=== PATIENT | female | born 1985 | race Caucasian/White ===

== ENCOUNTER 2016-07-23 09:19 | Emergency (ER) | payer BC, MEDICAID ==
[2016-07-23] MEDS ORDERED: ONDANSETRON 4 MG TAB.RAPDIS PO ONE (09:52)
--- NOTE | 2016-07-23 09:55 | ER Document Report ---
ED Medical Screen (RME) - General Chief Complaint: Abdominal Pain Stated Complaint: LOWER ABDOMINAL PAIN Time Seen by Provider: 07/23/16 09:51 Mode of Arrival: Ambulatory Information source: Patient Notes: 31-year-old female presents to ED for pain in the right mid to lower abdomen. She states it hurts to walk and she still has the pain. She still has nausea but no vomiting. Patient has a long history of abdominal problems during the . She states this pain is different than any of the other pain. She states that while she was in the she had a perforated something but she is not sure if it was intestines or stomach. She did have an ulcer at the end of the call for. She has had a gallbladder removed states she has had multiple multiple colonoscopies and endoscopies in her last CAT scan was in December or January of last year 2015. She states this pain is different than all of her other stomach pains. I have greeted and performed a rapid initial assessment of this patient. A comprehensive ED assessment and evaluation of the patient, analysis of test results and completion of medical decision making process will be conducted by an additional ED providers. TRAVEL OUTSIDE OF THE [place] IN LAST 30 DAYS: No - Related Data Allergies/Adverse Reactions: cillins Allergy (Uncoded 07/23/16 09:23) swelling Past Medical History Renal/ Medical History: Denies: Hx Peritoneal Dialysis Physical Exam - Vital signs Vitals: Temp Pulse Resp BP Pulse Ox 98.3 F 70 14 115/72 99 07/23/16 09:23 07/23/16 09:23 07/23/16 09:23 07/23/16 09:23 07/23/16 09:23 Course - Vital Signs Vital signs: Temp Pulse Resp BP Pulse Ox 98.3 F 70 14 115/72 99 07/23/16 09:23 07/23/16 09:23 07/23/16 09:23 07/23/16 09:23 07/23/16 09:23
[2016-07-23 10:19] LABS: ABSOLUTE EOSINOPHILS # (AUTO) 0.2 10^3/uL (0.0-0.6); ABSOLUTE LYMPHOCYTES (AUTO) 1.1 10^3/uL (0.5-4.7); ABSOLUTE MONOCYTES (AUTO) 0.4 10^3/uL (0.1-1.4); ABSOLUTE NEUT (AUTO) 6.3 10^3/uL (1.7-8.2); BASOPHILS % (AUTO) 0.5 % (0-2); EOSINOPHILS % (AUTO) 2.2 % (0-6); HEMATOCRIT 41.5 % (36.0-47.0); HEMOGLOBIN 14.2 g/dL (12.0-15.5); HGB HCT DIFFERENCE 1.1; LYMPHOCYTES % (AUTO) 13.2 % (13-45); MEAN CORPUSCULAR HEMOGLOBIN 32.9 pg (27.0-33.4); MEAN CORPUSCULAR HGB CONC 34.3 g/dL (32.0-36.0); MEAN CORPUSCULAR VOLUME 96 fl (80-97); MONOCYTES % (AUTO) 5.2 % (3-13); RED BLOOD COUNT 4.33 10^6/uL (3.72-5.28); RED CELL DISTRIBUTION WIDTH 12.4 % (11.5-14.0); SEGMENTED NEUTROPHILS % (AUTO) 78.9 % (42-78)
[2016-07-23 10:22] LABS: APPEARANCE,URINE SLIGHTLY-CLOUDY; BILIRUBIN,URINE NEGATIVE (NEGATIVE); GLUCOSE, URINE NEGATIVE (NEGATIVE); KETONES,URINE NEGATIVE (NEGATIVE); LEUKOCYTE ESTERASE,URINE NEGATIVE (NEGATIVE); NITRITE,URINE NEGATIVE (NEGATIVE); PROTEIN,URINE NEGATIVE (NEGATIVE); URINE SPECIFIC GRAVITY 1.015; UROBILINOGEN,URINE NEGATIVE mg/dL (<2.0)
[2016-07-23 10:38] LABS: ALANINE AMINOTRANSFERASE 24 U/L (9-52); ALBUMIN 4.3 g/dL (3.5-5.0); ALKALINE PHOSPHATASE 59 U/L (38-126); ANION GAP 10 (5-19); ASPARTATE AMINO TRANSFERASE 23 U/L (14-36); BILIRUBIN,DIRECT 0.2 mg/dL (0.0-0.4); BILIRUBIN,TOTAL 1.6 mg/dL (0.2-1.3); BLOOD UREA NITROGEN 13 mg/dL (7-20); CALCIUM 9.3 mg/dL (8.4-10.2); CARBON DIOXIDE 27 mmol/L (22-30); CHLORIDE 105 mmol/L (98-107); CREATININE RESULT 0.69 mg/dL (0.52-1.25); GLUCOSE 88 mg/dL (75-110); LIPASE 95.6 U/L (23-300); TOTAL PROTEIN 7.6 g/dL (6.3-8.2)
--- NOTE | 2016-07-23 11:22 | ER Document Report ---
ED General - General Chief Complaint: Abdominal Pain Stated Complaint: LOWER ABDOMINAL PAIN Time Seen by Provider: 07/23/16 09:51 Mode of Arrival: Ambulatory Information source: Patient Notes: Patient presents emergency department with complaints of right lower quadrant abdominal pain. He reports she reports that she had a decreased appetite last night and even finish her direct line. She reports at approximately 4:30 in the morning she woke up with a sharp pain in the right lower quadrant. She reports some nausea but was able to eat a bagel this morning around 830. She complains of pain when walking. Positive obturator. Denies fever vomiting diarrhea. Denies pain with void. Denies vaginal discharge. No recent trauma. TRAVEL OUTSIDE OF THE [place] IN LAST 30 DAYS: No - HPI Onset: This morning Onset/Duration: Sudden Quality of pain: Sharp Severity: Severe Pain Level: 4 Associated symptoms: Nausea Exacerbated by: Walking Relieved by: Denies Similar symptoms previously: No Recently seen / treated by doctor: No - Related Data Allergies/Adverse Reactions: cillins Allergy (Uncoded 07/23/16 09:23) swelling Past Medical History - General Information source: Patient Last Menstrual Period: 06/28/16 - Social History Smoking Status: Unknown if Ever Smoked Cigarette use (# per day): No Frequency of alcohol use: Occasional Drug Abuse: None Family History: Reviewed & Not Pertinent Patient has suicidal ideation: No Patient has homicidal ideation: No - Medical History Medical History: Negative Renal/ Medical History: Denies: Hx Peritoneal Dialysis Past Surgical History: Reports: Hx Abdominal Surgery, Hx Appendectomy, Hx Cholecystectomy Review of Systems - Review of Systems Notes: Review HPI for review of systems., All other systems negative Physical Exam - Vital signs Vitals: Temp Pulse Resp BP Pulse Ox 98.3 F 70 14 115/72 99 07/23/16 09:23 07/23/16 09:23 07/23/16 09:23 07/23/16 09:23 07/23/16 09:23 - Notes Notes: PHYSICAL EXAMINATION: GENERAL: well appearing non toxic looking HEAD: Atraumatic, normocephalic. EYES: Pupils equal round extraocular movements intact, sclera anicteric, conjunctiva are normal. ENT: nares patent, Moist mucous membranes. NECK: Normal range of motion, supple without lymphadenopathy LUNGS: CTAB and equal. No wheezes rales or rhonchi. HEART: Regular rate and rhythm without murmurs ABDOMEN: RLL Quad ttp, + obturator, pain with heel tap BACK: Denies pain EXTREMITIES: Normal range of motion, no pitting edema. No cyanosis. NEUROLOGICAL: Cranial nerves grossly intact. Normal sensory/motor exams. PSYCH: Normal mood, normal affect. SKIN: Warm, Dry, normal turgor, no rashes or lesions noted Course - Re-evaluation Re-evalutation: 07/23/16 11:17 Dr. Roach in the emergency department, updated on patient possible appendicitis. 07/23/16 11:25 Dr Roach the patient. He was advised with transvaginal ultrasound to rule out torsion if that is negative CT with oral or IV contrast. pt updated on plan, declines pain medication 07/23/16 14:35 7 cm complex cyst noted. Consulted with Dr. Dmitry Bowman regarding patient ovarian cyst. Reviewed ultrasound report patient history. At this time patient is safe to go home. She was given instructions on signs and symptoms of ruptured ovarian cyst and the importance of follow-up with TURNTABLE OPERATOR. She reports she will follow-up with her PROFESSOR OF [facility]. I did attempt to contact [facility] but was unsuccessful in talking to a person. - Vital Signs Vital signs: Temp Pulse Resp BP Pulse Ox 98.3 F 60 18 100/68 100 07/23/16 09:23 07/23/16 14:26 07/23/16 14:26 07/23/16 14:26 07/23/16 14:26 - Laboratory Result Diagrams: 07/23/16 10:00 07/23/16 10:00 Laboratory results interpreted by me: 07/23/16 07/23/16 10:00 10:00 Seg Neutrophils % 78.9 H Total Bilirubin 1.6 H - Diagnostic Test Radiology reviewed: Image reviewed, Reports reviewed - Diagnostic report text EXAM DESCRIPTION: U/S NON OB PEL TV W/DOPPLER COMPLETED DATE/ TIME: 07/23/2016 12:27 pm REASON FOR STUDY: RLQ pain, hx ovarian cyst rupture, R /O torsion COMPARISON: None. TECHNIQUE: Dynamic and static grayscale images acquired of the pelvis via transvaginal approach and recorded on PACS. Additional selected color Doppler and spectral images recorded. LIMITATIONS: None. FINDINGS: UTERUS: Contour normal. No mass. ENDOMETRIAL STRIPE: No focal or generalized thickening. No masses. CERVIX: No nabothian cysts. RIGHT OVARY: 7 cm anechoic lesion with dependent echogenic component measuring about 3 cm. RIGHT OVARY DOPPLER: Normal arterial vascular flow without evidence for torsion. LEFT OVARY: No abnormal masses. LEFT OVARY DOPPLER: Normal arterial vascular flow without evidence for torsion. FREE FLUID: Small amount. OTHER: No other significant finding. MEASUREMENTS: UTERUS: 9.9 x 6.7 x 4.4 cm ENDOMETRIAL STRIPE: 11 mm RIGHT OVARY: 8.4 x 7.5 x 5.8 cm LEFT OVARY: 3.0 x 2.0 x 1.7 cm IMPRESSION: 7 cm complex cyst right ovary - Consults dr marques bowman Time consulted: 14:25 Reason for consultation: 07/23/16 14:38 7 cm complex ovarian cyst, plan of care Consulted provider: other Discharge - Discharge Clinical Impression: Right lower quadrant abdominal pain, Ovarian cyst Condition: Stable Disposition: HOME, SELF-CARE Instructions: Oral Narcotic Medication ([facility]), Antinausea Medication ([facility]), Ovarian Cyst ([facility]) Additional Instructions: *You have been evaluated for abdominal pain, ovarian cysts *The ultrasound showed a 7cm complex right ovarian cysts *Take medication as prescribed for pain *Follow up with your TURNTABLE OPERATOR - [facility] within 5 days *Return to ED for worsening condition, changes, needs, lightheadedness, vaginal bleeding ,increased pain, concerns *Return to ED if not better in 24 hours Prescriptions: Oxycodone HCl/Acetaminophen [Percocet 5-325 mg Tablet] 1 - 2 tab PO ASDIR PRN # 15 tablet PRN Reason: Referrals: MARTITA HAQ MD [Primary Care Provider] - Follow up in 3-5 days
--- NOTE | 2016-07-23 12:39 | RADIOLOGY REPORT (SQ) ---
EXAM DESCRIPTION: U/S NON OB PEL TV W/DOPPLER COMPLETED DATE/TIME: 07/23/2016 12:27 pm REASON FOR STUDY: RLQ pain, hx ovarian cyst rupture, R/O torsion COMPARISON: None. TECHNIQUE: Dynamic and static grayscale images acquired of the pelvis via transvaginal approach and recorded on PACS. Additional selected color Doppler and spectral images recorded. LIMITATIONS: None. FINDINGS: UTERUS: Contour normal. No mass. ENDOMETRIAL STRIPE: No focal or generalized thickening. No masses. CERVIX: No nabothian cysts. RIGHT OVARY: 7 cm anechoic lesion with dependent echogenic component measuring about 3 cm. RIGHT OVARY DOPPLER: Normal arterial vascular flow without evidence for torsion. LEFT OVARY: No abnormal masses. LEFT OVARY DOPPLER: Normal arterial vascular flow without evidence for torsion. FREE FLUID: Small amount. OTHER: No other significant finding. MEASUREMENTS: UTERUS: 9.9 x 6.7 x 4.4 cm ENDOMETRIAL STRIPE: 11 mm RIGHT OVARY: 8.4 x 7.5 x 5.8 cm LEFT OVARY: 3.0 x 2.0 x 1.7 cm IMPRESSION: 7 cm complex cyst right ovary. TECHNICAL DOCUMENTATION: JOB ID: [id number] [employer]- All Rights Reserved
[2016-07-23] MEDS ORDERED: OXYCODONE-ACETAMINOPHEN 5-325 MG TABLET PO ONE (13:47)
[2016-07-23 14:27] VITALS: BP 100/68
--- NOTE | 2016-07-23 17:20 | PDOC CONSULTATION ---
Consultation Consult Date: 07/23/16 Attending physician:: SUNNY PHILLIPS Consult reason:: Right lower quadrant abdominal pain. History of Present Illness Admission Date/PCP: MARTITA HAQ MD Patient complains of: Patient awoke this morning at approximately 0700, with gradual onset of right lower quadrant pain with nausea without vomiting. Patient denied any fever or chills, change in bowel habits, or anorexia. Patient ate breakfast before coming to the hospital. Patient reports that she has had previous ovarian cyst problems, but does not recall if her previous experience of pain like this was related to that. Patient denies any urinary symptoms or vaginal bleeding or discharge. History of Present Illness: VIANNEY KHAN is a 31 year old female Past Surgical History Past Surgical History: Reports: Appendectomy, Cholecystectomy Social History Smoking Status: Unknown if Ever Smoked Family History Family History: Reviewed & Not Pertinent Parental Family History Reviewed: No - Not applicable Children Family History Reviewed: Unknown - Not applicable. Sibling(s) Family History Reviewed.: No - Not applicable. Medication/Allergy Home Medications: Pnv W-O Ca No5/Fe Fumarate/FA [-U Capsule] 1 cap PO DAILY 01/12/12 Oxycodone HCl/Acetaminophen [Percocet 5-325 mg Tablet] 1 - 2 tab PO ASDIR PRN # 15 tablet 07/23/16 Allergies/Adverse Reactions: cillins Allergy (Uncoded 07/23/16 09:23) swelling Physical Exam Vital Signs: Temp Pulse Resp BP Pulse Ox 98.3 F 60 18 100/68 100 07/23/16 09:23 07/23/16 14:26 07/23/16 14:26 07/23/16 14:26 07/23/16 14:26 Intake & Output 07/22/16 07/23/16 07/24/16 06:59 06:59 06:59 Weight 49.7 kg Head exam: PRESENT: atraumatic Eye exam: ABSENT: conjunctival injection, conjunctiva pale Neck exam: PRESENT: full ROM. ABSENT: carotid bruit, JVD, lymphadenopathy, tenderness, thyromegaly, tracheal deviation GI/Abdominal exam: PRESENT: firm, normal bowel sounds, organolmegaly, rebound - Mild rebound., tenderness - Mild tenderness., other - No guarding noted.. ABSENT: guarding Results Laboratory Results: 07/23/16 10:00 07/23/16 10:00 07/23/16 07/23/16 07/23/16 10:00 10:00 10:00 WBC 8.0 RBC 4.33 Hgb 14.2 Hct 41.5 MCV 96 MCH 32.9 MCHC 34.3 RDW 12.4 Plt Count 290 Seg Neutrophils % 78.9 H Lymphocytes % 13.2 Monocytes % 5.2 Eosinophils % 2.2 Basophils % 0.5 Absolute Neutrophils 6.3 Absolute Lymphocytes 1.1 Absolute Monocytes 0.4 Absolute Eosinophils 0.2 Absolute Basophils 0.0 Sodium 142.0 Potassium 4.0 Chloride 105 Carbon Dioxide 27 Anion Gap 10 BUN 13 Creatinine 0.69 Est GFR ( Amer) > 60 Est GFR (Non-Af Amer) > 60 Glucose 88 Calcium 9.3 Total Bilirubin 1.6 H AST 23 ALT 24 Alkaline Phosphatase 59 Total Protein 7.6 Albumin 4.3 Lipase 95.6 Serum HCG, Qual NEGATIVE Urine Color Urine Appearance Urine pH Ur Specific Wilson Urine Protein Urine Glucose (UA) Urine Ketones Urine Blood Urine Nitrite Ur Leukocyte Esterase Urine WBC (Auto) Urine RBC (Auto) 07/23/16 10:00 WBC RBC Hgb Hct MCV MCH MCHC RDW Plt Count Seg Neutrophils % Lymphocytes % Monocytes % Eosinophils % Basophils % Absolute Neutrophils Absolute Lymphocytes Absolute Monocytes Absolute Eosinophils Absolute Basophils Sodium Potassium Chloride Carbon Dioxide Anion Gap BUN Creatinine Est GFR ( Amer) Est GFR (Non-Af Amer) Glucose Calcium Total Bilirubin AST ALT Alkaline Phosphatase Total Protein Albumin Lipase Serum HCG, Qual Urine Color YELLOW Urine Appearance SLIGHTLY-CLOUDY Urine pH 6.0 Ur Specific Wilson 1.015 Urine Protein NEGATIVE Urine Glucose (UA) NEGATIVE Urine Ketones NEGATIVE Urine Blood NEGATIVE Urine Nitrite NEGATIVE Ur Leukocyte Esterase NEGATIVE Urine WBC (Auto) 2 Urine RBC (Auto) 0 Impressions: Transvaginal US 07/23/16 11:26 IMPRESSION: 7 cm complex cyst right ovary. Assessment & Plan - Diagnosis (1) Abdominal pain Qualifiers: Abdominal location: right lower quadrant Qualified Code(s): R10.31 - Right lower quadrant pain Is this a current diagnosis for this admission?: YesPlan: Patient is being referred to a [employer] specialist as an outpatient. She has been given pain medication as well. - Plan Summary Plan Summary: Patient was found on vaginal ultrasound to have a 7 cm right ovarian cyst. No surgical intervention is indicated. Patient is being referred to an outpatient [employer] specialist
== END 2016-07-23 14:39 | disposition home or self-care (01) ==
LOC: ER 09:19
DX: N83.201 Unspecified ovarian cyst, right side (principal); R10.31 Right lower quadrant pain; R63.0 Anorexia
CPT/HCPCS: 99284; 36415; 83690; 84703; 85025; 80053; 81001; 76830; 93976; S0119

== ENCOUNTER 2016-07-24 09:54 | Emergency (ER) | payer BC ==
[2016-07-24 09:59] VITALS: BP 106/63
--- NOTE | 2016-07-24 10:19 | ER Document Report ---
ED GI/ - General Chief Complaint: Abdominal Pain Stated Complaint: POSSIBLE CYST Time Seen by Provider: 07/24/16 10:09 TRAVEL OUTSIDE OF THE [place] IN LAST 30 DAYS: No - HPI Patient complains to provider of: Abdominal pain - pt seen here yesterday -- had full w/u including U/S which revealed a larger R ovarian cyst. She took one percocet last night and her pain was not significantly improved so she returned today. - Related Data Allergies/Adverse Reactions: cillins Allergy (Uncoded 07/24/16 09:58) swelling Past Medical History - Social History Smoking Status: Never Smoker Cigarette use (# per day): No Chew tobacco use (# tins/day): No Smoking Education Provided: No Family History: Reviewed & Not Pertinent Patient has suicidal ideation: No Patient has homicidal ideation: No Renal/ Medical History: Denies: Hx Peritoneal Dialysis Past Surgical History: Reports: Hx Abdominal Surgery, Hx Appendectomy, Hx Cholecystectomy Review of Systems - Review of Systems Constitutional: No symptoms reported Cardiovascular: No symptoms reported Respiratory: No symptoms reported Gastrointestinal: See HPI Genitourinary: No symptoms reported Female Genitourinary: No symptoms reported Musculoskeletal: No symptoms reported -: Yes All other systems reviewed and negative Physical Exam - Vital signs Vitals: Temp Pulse Resp BP Pulse Ox 98.2 F 66 16 106/63 99 07/24/16 09:58 07/24/16 09:58 07/24/16 09:58 07/24/16 09:58 07/24/16 09:58 - General General appearance: Appears well In distress: None - Respiratory Respiratory status: No respiratory distress Breath sounds: Normal - Cardiovascular Rhythm: Regular Heart sounds: Normal auscultation - Abdominal Inspection: Normal Tenderness: Tender - min. TTP RLQ without peritoneal signs Organomegaly: No organomegaly Course - Re-evaluation Re-evalutation: 07/24/16 10:16 expained to pt. that no new W/u indicated today -- will try different pain meds and meds for nausea. She needs to F/U with her [facility] LIFT DRIVER [facility] - Vital Signs Vital signs: Temp Pulse Resp BP Pulse Ox 98.2 F 66 16 106/63 99 07/24/16 09:58 07/24/16 09:58 07/24/16 09:58 07/24/16 09:58 07/24/16 09:58 Discharge - Discharge Clinical Impression: Ovarian cyst Condition: Stable Disposition: HOME, SELF-CARE Additional Instructions: rest, take meds as prescribed, return if worse Prescriptions: Hydrocodone Bit/Acetaminophen [Hydrocodon-Acetaminophen 5-325] 1 each PO BID # 14 tablet Promethazine HCl [Phenergan 25 mg Tablet] 25 - 50 mg PO ASDIR PRN #12 tablet PRN Reason: Referrals: YUDITH NUÑEZ MD [ACTIVE STAFF] - Follow up as needed
== END 2016-07-24 10:25 | disposition home or self-care (01) ==
LOC: ER 09:54
DX: N83.201 Unspecified ovarian cyst, right side (principal); Z90.49 Acquired absence of other specified parts of digestive tract; Z88.0 Allergy status to penicillin
CPT/HCPCS: 99283

== ENCOUNTER 2016-07-24 20:19 | Emergency (ER) | payer BC ==
[2016-07-24 21:56] LABS: ABSOLUTE EOSINOPHILS # (AUTO) 0.3 10^3/uL (0.0-0.6); ABSOLUTE MONOCYTES (AUTO) 0.7 10^3/uL (0.1-1.4); ABSOLUTE NEUT (AUTO) 4.6 10^3/uL (1.7-8.2); BASOPHILS % (AUTO) 0.5 % (0-2); EOSINOPHILS % (AUTO) 3.5 % (0-6); HEMATOCRIT 40.9 % (36.0-47.0); HEMOGLOBIN 13.8 g/dL (12.0-15.5); HGB HCT DIFFERENCE 0.5; LYMPHOCYTES % (AUTO) 26.6 % (13-45); MEAN CORPUSCULAR HEMOGLOBIN 32.5 pg (27.0-33.4); MEAN CORPUSCULAR HGB CONC 33.7 g/dL (32.0-36.0); MEAN CORPUSCULAR VOLUME 97 fl (80-97); MONOCYTES % (AUTO) 8.7 % (3-13); RED BLOOD COUNT 4.24 10^6/uL (3.72-5.28); RED CELL DISTRIBUTION WIDTH 12.3 % (11.5-14.0); SEGMENTED NEUTROPHILS % (AUTO) 60.7 % (42-78); WHITE BLOOD COUNT 7.6 10^3/uL (4.0-10.5)
[2016-07-24 22:02] LABS: AMORPHOUS SEDIMENT,URINE TRACE /HPF; APPEARANCE,URINE CLOUDY; BILIRUBIN,URINE NEGATIVE (NEGATIVE); GLUCOSE, URINE NEGATIVE (NEGATIVE); KETONES,URINE NEGATIVE (NEGATIVE); LEUKOCYTE ESTERASE,URINE NEGATIVE (NEGATIVE); NITRITE,URINE NEGATIVE (NEGATIVE); PROTEIN,URINE 30 mg/dL (NEGATIVE); URINE SPECIFIC GRAVITY 1.014; UROBILINOGEN,URINE NEGATIVE mg/dL (<2.0)
--- NOTE | 2016-07-24 23:27 | ER Document Report ---
ED GI/ <LACHELLEBOBBY - Last Filed: 07/24/16 23:44> - General Mode of Arrival: Ambulatory Information source: Patient TRAVEL OUTSIDE OF THE [place] IN LAST 30 DAYS: No - HPI Patient complains to provider of: Abdominal pain - right lower quadrant, Vaginal bleeding Onset: This evening Location: RLQ Associated symptoms: Other - see notes above <CAMMIE SALVADOR - Last Filed: 07/24/16 23:55> - General Chief Complaint: Vaginal Bleeding Stated Complaint: VAGINAL BLEEDING Time Seen by Provider: 07/24/16 23:13 Notes: 31 year old female with history of a 7cm right ovarian cyst presents to the ED complaining of vaginal bleeding that started this evening. Patient was seen here yesterday secondary to RLQ abdominal pain and was discharged with Percocet. Patient returned earlier today stating that the pain medications did not help. She was given a different pain medication and discharged before returning this evening with vaginal bleeding. Patient reports that she has gone through 3 pads in the past 3.5 hours. She states that the bleeding is heavier than her normal menstrual period. LMP was between 06/25/2016 and 06/28/2016. When she noticed the bleeding she called Keke Tran NP (who she saw yesterday) and was told to come to the ED to be evaluated. Patient has a history of a perforated stomach, cholecystectomy, and section x2. (CAMMIE SALVADOR) - Related Data Allergies/Adverse Reactions: Penicillins Allergy (Verified 07/24/16 21:20) cillins Allergy (Uncoded 07/24/16 21:20) swelling Past Medical History - General Information source: Patient Last Menstrual Period: 06/25/16 - Social History Smoking Status: Never Smoker Chew tobacco use (# tins/day): No Frequency of alcohol use: 3 glasses wine per week Drug Abuse: None Family History: Reviewed & Not Pertinent Renal/ Medical History: Reports: Hx Ovarian Cysts - 7cm right ovarian cyst. Denies: Hx Peritoneal Dialysis Past Surgical History: Reports: Hx Abdominal Surgery, Hx Cholecystectomy - Immunizations Hx Diphtheria, Pertussis, Tetanus Vaccination: Yes <CAMMIE SALVADOR - Last Filed: 07/24/16 23:55> Review of Systems - Review of Systems Constitutional: No symptoms reported EENT: No symptoms reported Cardiovascular: No symptoms reported Respiratory: No symptoms reported Gastrointestinal: See HPI, Abdominal pain - RLQ Genitourinary: No symptoms reported Female Genitourinary: See HPI, Vaginal bleeding Musculoskeletal: No symptoms reported Skin: No symptoms reported Hematologic/Lymphatic: No symptoms reported Neurological/Psychological: No symptoms reported -: Yes All other systems reviewed and negative <CAMMIE SALVADOR - Last Filed: 07/24/16 23:55> Physical Exam - General General appearance: Alert In distress: None - HEENT Head: Normocephalic, Atraumatic Eyes: Normal Extraocular movements intact: Yes Pupils: PERRL - Respiratory Respiratory status: No respiratory distress Breath sounds: Normal - Cardiovascular Rhythm: Regular Heart sounds: Normal auscultation - Abdominal Inspection: Normal Distension: No distension Tenderness: Tender - Tenderness to palpation of the RLQ consistent with where her 7cm ovarian cyst is located - Back Back: Normal - Extremities General upper extremity: Normal inspection, Normal ROM General lower extremity: Normal inspection, Normal ROM - Neurological Neuro grossly intact: Yes - Psychological Associated symptoms: Normal affect, Normal mood - Skin Skin Temperature: Warm Skin Moisture: Dry Skin Color: Normal <CAMMIE SALVADOR - Last Filed: 07/24/16 23:55> - Vital signs Vitals: Temp Pulse Resp BP Pulse Ox 98.7 F 66 20 101/75 98 07/24/16 21:21 07/24/16 21:21 07/24/16 21:21 07/24/16 21:21 07/24/16 21:21 Course - Laboratory Result Diagrams: 07/24/16 21:35 <BOBBY LAROSE - Last Filed: 07/24/16 23:44> - Laboratory Result Diagrams: 07/24/16 21:35 <CAMMIE SALVADOR - Last Filed: 07/24/16 23:55> - Vital Signs Vital signs: Temp Pulse Resp BP Pulse Ox 98.7 F 66 20 101/75 98 07/24/16 21:21 07/24/16 21:21 07/24/16 21:21 07/24/16 21:21 07/24/16 21:21 - Laboratory Laboratory results interpreted by me: 07/24/16 21:30 Urine Protein 30 H Urine Blood LARGE H Discharge <BOBBY LAROSE - Last Filed: 07/24/16 23:44> <CAMMIE SALVADOR - Last Filed: 07/24/16 23:55> - Discharge Clinical Impression: Complex cyst of right ovary Heavy menstrual bleeding Qualifiers: Menorrahagia type: with regular cycle Qualified Code(s): N92.0 - Excessive and frequent menstruation with regular cycle Disposition: HOME, SELF-CARE Additional Instructions: Start the control pills tomorrow. They should help control your bleeding and prevent any further ovarian cyst development for now. Follow[facility]up with [facility] or your MULTISKILL OPERATOR doctor in the next few days. RETURN TO THE EMERGENCY ROOM IF ANY NEW OR WORSENING SYMPTOMS. Prescriptions: Norgestimate-Ethinyl Estradiol [Ortho-Cyclen] 1 each PO DAILY #21 tab Referrals: SANDHYA BARROS MD [Primary Care Provider] - Follow up as needed [facility] [Provider Group] - Follow up in 3-5 days Scribe Attestation: 07/24/16 23:47 I personally performed the services described in the documentation, reviewed and edited the documentation which was dictated to the scribe in my presence, and it accurately records my words and actions. (BOBBY LAROSE) Scribe Documentation - Scribe Written by Caro:: Caro Garcia, 07/24/2016 [id number] acting as scribe for :: Lachelle <CAMMIE SALVADOR - Last Filed: 07/24/16 23:55>
[2016-07-25 00:02] VITALS: BP 101/58
== END 2016-07-25 00:01 | disposition home or self-care (01) ==
LOC: ER 20:19
DX: N83.201 Unspecified ovarian cyst, right side (principal); N92.0 Excessive and frequent menstruation with regular cycle; R10.31 Right lower quadrant pain
CPT/HCPCS: 36415; 81001; 84703; 85025; 99284

== ENCOUNTER 2016-12-03 10:16 | Day surgery (SDC) | payer BC ==
[~2016-12-03 10:16] MED LIST: DIPHENHYDRAMINE HCL 50 MG/ML VIAL ONE; EPINEPHRINE INJ 1 MG/10 ML DISP.SYRIN ONE; FENTANYL CITRATE INJ/PF 100 MCG/2 ML AMPUL ONE; FLUMAZENIL INJ 0.5 MG/5 ML VIAL ONE; GLUCAGON,HUMAN RECOMB 1 MG INJ ONE; MIDAZOLAM 2 MG/2 ML INJ ONE; NALOXONE HCL INJ/PF 0.4 MG/1 ML SDV ONE; ONDANSETRON HCL INJ/PF 4 MG/2 ML SDV ONE
--- NOTE | 2016-12-03 11:10 | Operative Report ---
Operative Report DATE OF SURGERY: 12/03/16 Operative Report: The risks benefits and alternatives of the procedure explained to the patient in detail and informed consent is obtained,A GIF Olympus video scope was inserted into the patient's mouth and hypopharynx, the esophagus is identified intubated and insufflated, the scope was then advanced through the esophagus stomach and duodenum, retroflexion maneuver is done, the esophagus stomach and first and second portions of the duodenum examined PREOPERATIVE DIAGNOSIS: Epigastric/right upper quadrant pain POSTOPERATIVE DIAGNOSIS: Gastritis status post biopsy rule out Helicobacter pylori OPERATION: EGD with biopsy SURGEON: SANDI MARCIAL ANESTHESIA: Moderate Sedation - 4 mg of Versed, 100 mcg of fentanyl. Conscious sedation monitoring time 30 minutes. TISSUE REMOVED OR ALTERED: Gastric mucosal specimen obtained COMPLICATIONS: None. ESTIMATED BLOOD LOSS: None. INTRAOPERATIVE FINDINGS: As noted above. PROCEDURE: Patient tolerated the procedure well. No immediate postprocedure complications are noted. Patient discharged in good condition. Discharge date 12/03/2016. Discharge diet: Regular. Discharge activity: Regular. 2-3 week follow-up to discuss findings. Patient is instructed to call the office or proceed to the emergency room should there be any further problems or questions. We will wait on pathology.
[2016-12-03 12:05] VITALS: BP 94/55
== END 2016-12-03 12:10 | disposition home or self-care (01) ==
LOC: END 10:16
PROVIDERS: ATTEND Internal Medicine Gastroenterology
PROC: 0DB68ZX Excision of Stomach, Via Natural or Artificial Opening Endoscopic, Diagnostic (ICD-10-PCS; principal; 2016-12-03 10:30)
DX: K31.9 Disease of stomach and duodenum, unspecified (principal); Z77.22 Contact with and (suspected) exposure to environmental tobacco smoke (acute) (chronic); Z88.0 Allergy status to penicillin; Z87.11 Personal history of peptic ulcer disease
CPT/HCPCS: 43239; 88342 ×2; 88305 ×2; J2250; J3010; J0171; J1200; J1610; J2310; J2405; J3490

== ENCOUNTER → 2018-11-01 | Outpatient (CLI) | payer BC, MEDICAID ==
--- NOTE | 2018-11-01 14:05 | RADIOLOGY REPORT (SQ) ---
EXAM DESCRIPTION: NM GASTRIC EMPTYING STUDY COMPLETED DATE/TIME: 11/01/2018 1:46 pm REASON FOR STUDY: R10.10 UPPER ABDOMINAL PAIN, UNSPECIFIED R10.10 UPPER ABDOMINAL PAIN, UNSPECIFIED COMPARISON: None. RADIONUCLIDE AND DOSE: 2 millicuries Tc-99m Sulfur Colloid. A wide variety of solid foods have been used. The route of agent administration: Oral. TECHNIQUE: 1 minute serial static imaging performed at time of meal, 1 hour, 2 hours, 3 hours, and 4 hours as needed. Once stomach reaches 90% emptying, the test is complete. Image intensity values pl otted with respect to time with linear regression algorithm. LIMITATIONS: None. FINDINGS: Patient was observed for 4 hours. Immediate post meal serves as baseline. Gastric emptying at 30 minutes was 26.5%. Gastric emptying at 60 minutes was 46% Gastric emptying at 90 minutes was 60.3%. Gastric emptying at 120 minutes was 70.8%. Gastric emptying at 240 minutes was 91.5%. IMPRESSION: NORMAL GASTRIC EMPTYING. TECHNICAL DOCUMENTATION: JOB ID: [id number] [employer]- All Rights Reserved rev-07/08 Reading location - IP/workstation name: [email or web address]
== END ==
LOC: RAD 09:06
PROVIDERS: ATTEND Behavioral Pediatrics
DX: R10.10 Upper abdominal pain, unspecified (principal)
CPT/HCPCS: 78264; A9541